=== PATIENT | male | born 1960 | race Caucasian/White ===

== ENCOUNTER 2021-10-07 14:04 | Emergency (ER) | payer MEDICAID ==
[~2021-10-07] VITALS: Ht 167.6 cm; Wt 78.0 kg
--- NOTE | 2021-10-07 14:20 | NUR ---
The patient is bibra7, from home, c/o chest pain sharp 8/10 pain scale while working in the backyard. doesn't take meds, 2 nitro spray and asa 325 mg givenon scene. The patient is alert and oriented x4. In room air and denies SOB. Respiration regular and unlabored. The patient is attached to the monitor. Warm blanket provided for comfort. Will continue to monitor the patient.
--- NOTE | 2021-10-07 14:25 | NUR ---
COVID ANTIGEN SWAB DONE AND SENT TO THE LAB.
[2021-10-07 15:05] LABS: BASOPHILS % (AUTO) 0.3 % (0.0-2.0); EOSINOPHILS % (AUTO) 0.2 % (0.0-6.0); HEMATOCRIT 43 % (39-51); HEMOGLOBIN 14.4 g/dL (13.5-17.5); LYMPHOCYTES # (AUTO) 0.5 K/uL (0.8-4.8); LYMPHOCYTES % (AUTO) 5.5 % (20.0-44.0); MEAN CORPUSCULAR HGB CONC 34 g/dl (31.0-36.0); MEAN CORPUSCULAR VOLUME 88 fL (80-96); MONOCYTES # (AUTO) 0.5 K/uL (0.1-1.30); MONOCYTES % (AUTO) 4.5 % (2.0-12.0); NEUTROPHILS # (AUTO) 8.9 K/uL (1.8-8.9); NEUTROPHILS % (AUTO) 89.5 % (43.0-81.0); PLATELET COUNT (AUTO) 335 K/uL (150-450); RED BLOOD CELL COUNT(AUTO) 4.84 MIL/uL (4.5-6.0)
[2021-10-07 15:18] LABS: ALANINE AMINOTRANSFERASE 33 U/L (12-78); ALBUMIN 4.2 g/dL (3.4-5.0); ALKALINE PHOSPHATASE 91 U/L (46-116); ASPARTATE AMINOTRANSFERASE 21 U/L (15-37); BILIRUBIN,DIRECT 0.1 mg/dL (0.0-0.2); BILIRUBIN,TOTAL 0.6 mg/dL (0.2-1.0); CALCIUM, SERUM 8.9 mg/dL (8.5-10.1); CARBON DIOXIDE 26 mmol/L (21-32); CHLORIDE 109 mmol/L (98-107); CREATININE 1.3 mg/dL (0.6-1.3); GLUCOSE 139 mg/dL (74-106); POTASSIUM 3.7 mmol/L (3.5-5.1); SODIUM SERUM 145 mmol/L (136-145); TOTAL PROTEIN, SERUM 7.7 g/dL (6.4-8.2); UREA NITROGEN, BLOOD 12 mg/dL (7-18)
--- NOTE | 2021-10-07 15:18 | NUR ---
DR GUERRIER MADE AWARE OF BLOOD PRESSURE OF 181/106 AND MID-STERNAL CHEST PAIN 8/10. NO NEW ORDERS PER MD AT THIS TIME. WILL CONTINUE TO MONITOR THE PATIENT.
--- NOTE | 2021-10-07 15:37 | NUR ---
PER DR GUERRIER NOT TO ADMINISTER ORDERED NTG 50MG/250 ML IV. PER HE IS ENTERING NEW ORDERS.
[2021-10-07] MEDS ORDERED: NTG 50 MG/D5W250 ML BOTTL 250 ML IV ONE ×2 (15:42→16:00)
--- NOTE | 2021-10-07 15:46 | NUR ---
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
[2021-10-07] MEDS ORDERED: NITROGLYCERIN 0.4 MG/TAB BOTTLE ONE (15:50)
[2021-10-07] MEDS ORDERED: HEPARIN SODIUM, PORCINE 5000 UNITS/1 ML VIAL ONE (15:51)
--- NOTE | 2021-10-07 15:52 | NUR ---
NITROSTAT 0.4 MG SL ADMINISTERED.
--- NOTE | 2021-10-07 15:57 | NUR ---
NITROSTAT 0.4 MG SL ADMINISTERED (DOSE #2)
[2021-10-07] MEDS ORDERED: HEPARIN SODIUM, PORCINE 5000 UNITS/1 ML VIAL IV ONE (16:00)
[2021-10-07] MEDS ORDERED: NITROGLYCERIN 0.4 MG/TAB BOTTLE SL ONE (16:00)
--- NOTE | 2021-10-07 16:01 | NUR ---
THE PATIENT PICKED UP VIA [phone]
--- NOTE | 2021-10-07 16:02 | NUR ---
THE PATIENT IS TRANSFERED TO [facility]. SON MADE AWARE.
[2021-10-07 16:06] VITALS: BP 181/106
== END 2021-10-07 16:11 | disposition short-term general hospital (02) ==
LOC: ER 14:05
DX: I21.3 ST elevation (STEMI) myocardial infarction of unspecified site (principal); I16.1 Hypertensive emergency; I10 Essential (primary) hypertension; E11.9 Type 2 diabetes mellitus without complications; Z20.822 Contact with and (suspected) exposure to COVID-19
CPT/HCPCS: 36415; 71045; 80048; 80076; 84484; 85025; 85730; 87426; 93005 ×2; 96374; 99291; C9803; J1644; J3490